=== PATIENT | male | born 1990 | race African-American/Black ===

== ENCOUNTER 2017-01-18 01:00 | Emergency (ER) | payer OTHER ==
[~2017-01-18] VITALS: Ht 180.3 cm; Wt 120.0 kg
[2017-01-18 01:49] LABS: BASOPHIL COUNT 0.1 K/uL (0-0.1); EOSINOPHIL (%) 4.4 % (0-5); EOSINOPHIL COUNT 0.3 K/uL (0-0.3); HEMATOCRIT 44.8 % (38.0-50.0); IMMATURE GRANULOCYTE (%) 0.1 % (0.0-0.7); INSTRUMENT ABS NEUTROPHIL CT 3.8 K/uL; MCH 25.9 PG (29.0-34.0); MCV 83.4 FL (86-99); MEAN PLAT.VOLUME 9.9 uM^3 (9.0-12.4); MONOCYTE (%) 6.2 % (3-12); MONOCYTE COUNT 0.5 K/uL (0-0.8); NEUTROPHIL (%) 49.9 % (45-76); NEUTROPHIL COUNT 3.8 K/uL (1.8-6.4); PLATELET COUNT 342 K/uL (156-360); RBC DIS.WIDTH-CV 12.1 % (11.8-14.6); RBC DIS.WIDTH-SD 36.5 % (39-53); RED BLOOD COUNT 5.37 M/uL (4.00-5.50); WHITE BLOOD COUNT 7.7 K/uL (4.1-10.2)
[2017-01-18 01:57] LABS: CHLORIDE 108 mEq/L (99-109); POTASSIUM 3.3 mEq/L (3.7-5.4); SODIUM 143 mEq/L (136-147)
[2017-01-18 01:58] LABS: GLUCOSE 107 mg/dL (70-99)
[2017-01-18 02:00] LABS: ANION GAP 10 MEQ/L (2-14)
[2017-01-18 02:02] LABS: GFR ESTIMATE (CALCULATED) > 59 mL/min/
[2017-01-18 02:03] LABS: UREA NITROGEN (BUN) 9 mg/dL (9-23)
[2017-01-18] MEDS ORDERED: TRAMADOL HCL50 MG PO (06:05)
[2017-01-18] MEDS ORDERED: FLEXERIL10 MG PO (06:05)
[2017-01-18] MEDS ORDERED: MOTRIN600 MG PO (06:05)
[2017-01-18 06:17] VITALS: BP 140/80
== END 2017-01-18 06:20 | disposition home or self-care (01) ==
LOC: EME 01:00
PROVIDERS: Emergency Medicine
DX: T14.8 Other injury of unspecified body region (principal); R51 Headache; M54.9 Dorsalgia, unspecified; M54.2 Cervicalgia; Y04.8XXA Assault by other bodily force, initial encounter; Y07.499 Other family member, perpetrator of maltreatment and neglect; J45.909 Unspecified asthma, uncomplicated; I10 Essential (primary) hypertension; Z21 Asymptomatic human immunodeficiency virus [HIV] infection status; F17.200 Nicotine dependence, unspecified, uncomplicated
CPT/HCPCS: 70450; 71260; 72125; 72129; 72132; 73030; 73060; 73080; 73110; 73130; 74177; 80048; 85025; 86850; 86900; 86901; 99281; 99283; J2270